=== PATIENT | female | born 1985 | race Caucasian/White ===

== ENCOUNTER 2016-06-12 09:12 | Outpatient (CLI) | payer OTHER | END 2016-06-12 09:13 | disposition home or self-care (01) | LOC: NC 09:12 | PROVIDERS: ATTEND Obstetrics & Gynecology | DX: O24.410 Gestational diabetes mellitus in pregnancy, diet controlled (principal); Z71.3 Dietary counseling and surveillance ==

== ENCOUNTER 2016-06-19 15:53 | Outpatient (CLI) | payer OTHER | END 2016-06-19 15:54 | disposition home or self-care (01) | LOC: NC 15:53 | PROVIDERS: ATTEND Obstetrics & Gynecology | DX: O24.410 Gestational diabetes mellitus in pregnancy, diet controlled (principal) ==

== ENCOUNTER 2016-08-06 11:12 | Outpatient (CLI) | payer OTHER ==
[2016-08-06 11:33] VITALS: BMI 38.5
[2016-08-06] MEDS ORDERED: SODIUM CHLORIDE 0.9% FLUSH 0 ML ONE (11:44)
[2016-08-06] MEDS ORDERED: IV START KIT ONE (11:44)
[2016-08-06] MEDS ORDERED: LACTATED RINGERS 1,000 ML IV SCH (11:45)
== END 2016-08-06 13:09 | disposition home or self-care (01) ==
LOC: FBCOUT 11:12 → FBC 11:13 → FBCOUT 13:09
PROVIDERS: ATTEND Obstetrics & Gynecology
DX: O24.419 Gestational diabetes mellitus in pregnancy, unspecified control (principal); Z3A.00 Weeks of gestation of pregnancy not specified
CPT/HCPCS: 96360; 59025; J7120; G0463

== ENCOUNTER 2016-08-10 10:41 | Inpatient (IN) | payer OTHER ==
[2016-08-10] MEDS ORDERED: IV START KIT ONE (19:06)
[2016-08-10] MEDS ORDERED: PUMP TUBING ONE (19:07)
[2016-08-10] MEDS ORDERED: MINERAL OIL 25 ML BOT ONE (19:07)
[2016-08-10] MEDS ORDERED: LIDOCAINE Viscous 2% 15 ML UDCUP ONE (19:07)
[2016-08-10] MEDS ORDERED: OXYTOCIN 10 UNITS/ML VIAL ONE (19:07)
[2016-08-10] MEDS ORDERED: LACTATED RINGERS 1,000 ML ONE (19:07)
[2016-08-10] MEDS ORDERED: LIDOCAINE 1% (PRES FREE) 30 ML VIAL ONE (19:07)
[2016-08-10] MEDS ORDERED: SODIUM CHLORIDE 0.9% FLUSH 20 ML ONE (19:08)
--- NOTE | 2016-08-10 19:29 | PCMAN ---
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 - Labs Blood Type: A (+) positive Rubella Status: Equivocal - Physical Exam General: Afebrile Psych/Mental Status: Mood/Affect Appropriate Abdomen: Other (efw 3600-3800g) Genitourinary: Normal Female Genitalia, Other (/-3) - Additional Comments 30yo at 38+2 admitted for induction of labor due to chronic HTN, GDMA2, and single umbilical artery induction indication and risks including risk of c/section, hyperstimlation, infection discussed initally was planned for misoprostol but is donte q2 min and 3cm. Will admit with labor and possible pitocin induction in AM. FHT initially min variability however then accel is noted. chk baseline PIH labs and hgba1c cont metformin, labetalol
[2016-08-10] MEDS ORDERED: METFORMIN HCL 500 MG TABLET PO SCH (19:36)
[2016-08-10] MEDS: MISOPROSTOL 25 MCG TABLET VG SCH (20:30)
[2016-08-10 20:34] LABS: ABSOLUTE NEUTROPHIL COUNT 7.8 K/mm3 (1.8-7.7); BASO % 0.2 % (0.2-1.0); EOS # 0.1 (0.0-0.5); HEMATOCRIT 37.7 % (37.0-47.0); HEMOGLOBIN 12.4 gm/l (12.0-16.0); IMM NEUT # 0.1 K/mm3 (0-0.2); LYMPH # 2.2 (1.0-4.8); LYMPH % 20.7 % (15-45); MEAN CELL VOLUME 85.5 fl (81.0-99.0); MEAN CORPUSCULAR HEMOGLOBIN 28.1 pg (27.0-31.0); MEAN CORPUSCULAR HGB CONC 32.9 g/dl (33.0-37.0); MONO # 0.5 (0.0-0.8); MONO % 4.5 % (4-12); NEUT % 72.6 % (43-75); PLATELET COUNT 204 K/mm3 (130-400); RED CELL DISTRIBUTION WIDTH 13.2 % (11.5-14.5)
[2016-08-10 20:47] VITALS: BMI 38.9
[2016-08-10 20:57] LABS: ALBUMIN 3.4 gm/dL (3.5-5.7); CALCIUM 8.7 mg/dL (8.6-10.3); URIC ACID 3.8 mg/dL (2.3-7.6)
[2016-08-10] MEDS ORDERED: LABETALOL HCL 100 MG TABLET PO SCH (21:00)
[2016-08-10 23:13] LABS: CREATININE,RANDOM URINE 122 mg/dL
[2016-08-11] MEDS ORDERED: LACTATED RINGERS 500 ML IV ONE (00:01)
[2016-08-11] MEDS ORDERED: OXYTOCIN IN NS 500 ML IV ONE ×2 (00:09→08:15)
--- NOTE | 2016-08-11 03:41 | PDOC36 ---
Provider Note Subject: called by RN to evaluation FHT Note: FHT reviewed 145's, periods of min variabilty and then mod variability is noted, mild variable decel at 0312 noted, accel noted 0228 and 0219. possible subtle late decel at 0328 noted. contractions spaced out somewhat. overall I do not see a pattern of recurrent decelerations. pt is resting and will cont IV fluid bolus at this time
[2016-08-11] MEDS ORDERED: LACTATED RINGERS 1,000 ML IV SCH ×2 (03:49→10:10)
--- NOTE | 2016-08-11 07:38 | PDOC36 ---
Provider Note Subject: intrapartum note Note: Pt feeling contractions, but they are more spaced out FHT: 150's, min-mod kristen, mild variable decels noted, + accelerations TOCO: q5-6 min SVE: 4/60/-3, BB AROM - clear fluid FSE is placed
[2016-08-11] MEDS ORDERED: OXYTOCIN IN LR 500 ML IV ONE (07:49)
[2016-08-11] MEDS ORDERED: OXYTOCIN IN LR 500 ML IV PRN (07:49)
[2016-08-11] MEDS: FAMOTIDINE 20 MG TABLET PO SCH ×2 (08:05→20:31)
[2016-08-11] MEDS: LABETALOL HCL 200 MG TABLET PO SCH ×2 (08:06→20:31)
[2016-08-11] MEDS: METFORMIN HCL 500 MG TABLET PO SCH ×2 (08:06→18:59)
[2016-08-11] MEDS ORDERED: OXYTOCIN IN NS 500 ML IV PRN (08:07)
[2016-08-11] MEDS: MISOPROSTOL 25 MCG TABLET VG SCH (08:34)
[2016-08-11] MEDS ORDERED: ONDANSETRON 4 MG/2ML 2 ML VIAL IV PRN ×2 (08:47→10:10)
[2016-08-11] MEDS ORDERED: LABETALOL HCL 100 MG TABLET PO SCH (09:00)
[2016-08-11] MEDS ORDERED: LABETALOL HCL 200 MG TABLET PO SCH (09:00)
[2016-08-11 09:09] LABS: A1C-GLYCOHEMOGLOBIN 0.6 g/dl; HEMOGLOBIN-GLYCO 11.8 g/dl
[2016-08-11] MEDS: LACTATED RINGERS 1,000 ML IV SCH ×2 (09:36→10:53)
[2016-08-11] MEDS ORDERED: NALBUPHINE HCL 20 MG/ML AMP IV PRN (10:10)
[2016-08-11] MEDS ORDERED: NALOXONE HCL 0.4 MG/ML VIAL IV PRN (10:10)
[2016-08-11] MEDS ORDERED: LACTATED RINGERS 500 ML IV PRN (10:10)
[2016-08-11] MEDS ORDERED: METOCLOPRAMIDE HCL 5 MG/ML 2ML VIAL IV PRN (10:10)
[2016-08-11] MEDS ORDERED: SODIUM CHLORIDE 0.9% 500 ML IV PRN (10:10)
[2016-08-11] MEDS ORDERED: EPHEDRINE SULFATE 50 MG/ML 1ML VIAL IV PRN (10:10)
[2016-08-11] MEDS ORDERED: DIPHENHYDRAMINE HCL 50 MG/1 ML VIAL IV PRN (10:10)
[2016-08-11] MEDS ORDERED: INSULIN ASPART (DOSE) 100 UNITS/1 ML SUB-Q ONE (10:35)
[2016-08-11] MEDS ORDERED: FENTANYL/ROPIVACAINE EPIDURAL 250 ML EP ONE (10:37)
[2016-08-11] MEDS ORDERED: EPIDURAL PUMP SET ONE (10:37)
[2016-08-11] MEDS ORDERED: ROPIVACAINE 0.5% 30 ML VIAL ONE (11:12)
[2016-08-11] MEDS ORDERED: EPIDURAL PROCEDURE TRAY ONE (11:12)
--- NOTE | 2016-08-11 11:59 | PCMDEL ---
Delivery Note - Delivery Delivery (Date): 08/11/16 Gender: Female Presentation: Cephalic Position: OA Umbilical Cord: 2 Vessel Delayed Cord Clamping:: < 1-2 min 1 Minute Total: 8 5 Minute Total: 8 Placenta:: complete, 2VC EBL:: 200cc Perineum:: 1st deg Suture:: 3-O chromic Comments:: Pt received epidural and was FD/100/+1 right after. FHT: 145, recurrent variable decelerations noted. Pt pushed and delivered to BERTO. Shoulders delivered easily. Baby to abdomen and bulb applied to mouth and nares. After delay 1 min, cord clamped and cut. Segment taken for cord pH. Cord bloods collected. Bladder emptied for 50cc. Placenta delivered with 2VC. 1st deg perineal lac repaied with 3-O chromic. EBL 200cc. Female 8/8 apgars.
[2016-08-11] MEDS ORDERED: LACTATED RINGERS 1,000 ML IV PRN (12:53)
[2016-08-11] MEDS ORDERED: OXYCODONE/ACETAMINOPHEN 5/325 MG TABLET PO PRN (12:53)
[2016-08-11] MEDS ORDERED: LANOLIN 50 APPLIC/7G TUBE TP PRN (12:53)
[2016-08-11] MEDS ORDERED: BENZOCAINE/MENTHOL 60 APPLIC/BOT TP PRN (12:53)
[2016-08-11] MEDS ORDERED: DOCUSATE SODIUM 100 MG CAPSULE PO PRN (12:53)
[2016-08-11] MEDS ORDERED: FENTANYL/ROPIVACAINE EPIDURAL 250 ML EP SCH (14:45)
[2016-08-11] MEDS: IBUPROFEN 800 MG TABLET PO PRN (19:04)
[2016-08-11] MEDS ORDERED: ASPIRIN (ENTERIC COATED) 81 MG TABLET.EC PO SCH (21:00)
[2016-08-12] MEDS: IBUPROFEN 800 MG TABLET PO PRN ×2 (03:41→09:42)
[2016-08-12 06:46] LABS: HEMATOCRIT 34.1 % (37.0-47.0); HEMOGLOBIN 11.1 gm/l (12.0-16.0)
--- NOTE | 2016-08-12 07:32 | PDOC44 ---
- Subjective Day: 1 Patient doing well. No complaints. Reports Flatus, Reports Pain Tolerable, Reports , Reports Lochia Moderate, Reports Tolerating Regular Diet - Objective Temp Pulse Resp BP Pulse Ox 98.0 F 75 16 133/73 08/12/16 03:33 08/12/16 03:33 08/12/16 03:33 08/12/16 03:33 Lab Results 08/12/16 06:10 Hgb 11.1 L Hct 34.1 L 08/11/16 08/10/16 09:13 20:10 POC Capillary Glucose 157 H Hemoglobin A1c 6.6 H Current Medications Generic Name Dose Route Start Last Admin Trade Name Freq PRN Reason Stop Dose Admin Benzocaine/Menthol 1 applic 08/11/16 12:53 Dermoplast TP PRN PRN Patient Comfort Docusate Sodium 100 mg 08/11/16 12:53 Colace PO DAILY PRN Comfort Emollient Ointment 1 applic 08/11/16 12:53 Tmq-M-Aoutma TP PRN PRN sore nipples Famotidine 20 mg 08/11/16 09:00 08/11/16 20:31 Pepcid PO 20 mg BID LUBNA Administration Ropivacaine/Fentanyl/NS 250 mls @ 0 mls/hr 08/11/16 14:45 08/11/16 10:50 Fentanyl 2 Mcg/Ml + Ropivacaine 0.125% Ep Bag EP 12 mls/hr EPI LUBNA Administration Protocol Per Protocol Ibuprofen 800 mg 08/11/16 12:53 08/12/16 03:41 Motrin PO 800 mg Q6H PRN Administration Pain (Mild) Labetalol HCl 200 mg 08/11/16 09:00 08/11/16 20:31 Trandate PO 200 mg BID LUBNA Administration Metformin HCl 500 mg 08/11/16 09:00 08/11/16 18:59 Glucophage PO 500 mg BIDWM LUBNA Administration Oxycodone/Acetaminophen 1 - 2 tab 08/11/16 12:53 Percocet 5/325 PO Q4H PRN Pain (Moderate) - Physical Exam General: Afebrile Psych/Mental Status: Mood/Affect Appropriate, Judgment/Insight Intact, Bonding Well Neurological: Grossly Intact, Alert, Oriented x 4, Normal Speech HEENT: Atraumatic, PERRLA, EOMI, Mucous membr. moist/pink Lungs: Clear to Auscultation Bilaterally, Normal Air Movement Cardiovascular: Regular Rate and Rhythm, Normal S1, Normal S2 Fundus: Firm, Midline, Below Umbilicus Abdomen: Normal Bowel Sounds Extremities: Full ROM Skin: Normal Color, Warm, Dry, Intact Disposition: Anticipate DC Home Tomorrow
[2016-08-12] MEDS: METFORMIN HCL 500 MG TABLET PO SCH (09:43)
[2016-08-12] MEDS: LABETALOL HCL 200 MG TABLET PO SCH (09:43)
[2016-08-12] MEDS: FAMOTIDINE 20 MG TABLET PO SCH (09:43)
[2016-08-12 09:51] VITALS: BP 140/79
[2016-08-12] MEDS ORDERED: MEASLES,MUMPS&RUBELLA VACCINE 0.5 ML VIAL SUB-Q V ONE (12:34)
== END 2016-08-12 13:53 | disposition home or self-care (01) | DRG 775 ==
LOC: FBC 19:04
PROVIDERS: ADMIT Obstetrics & Gynecology; ATTEND Obstetrics & Gynecology
PROC: 10907ZC Drainage of Amniotic Fluid, Therapeutic from Products of Conception, Via Natural or Artificial Opening (ICD-10-PCS; 2016-08-10)
PROC: 0HQ9XZZ Repair Perineum Skin, External Approach (ICD-10-PCS; 2016-08-10)
PROC: 10E0XZZ Delivery of Products of Conception, External Approach (ICD-10-PCS; principal; 2016-08-11)
DX: O24.425 Gestational diabetes mellitus in childbirth, controlled by oral hypoglycemic drugs (principal); O13.3 Gestational [pregnancy-induced] hypertension without significant proteinuria, third trimester; O76 Abnormality in fetal heart rate and rhythm complicating labor and delivery; Z37.0 Single live birth; O70.0 First degree perineal laceration during delivery; Z3A.38 38 weeks gestation of pregnancy